=== PATIENT | male | born 1990 | race Caucasian/White ===

== ENCOUNTER 2020-08-14 09:32 | Emergency (ER) | payer OTHER, SELFPAY ==
--- NOTE | ~2020-08-14 | XR_ITS ---
EXAMINATION: XR ankle LT min 3V EXAM DATE: 08/14/2020 10:09 INDICATION: Diffuse left ankle pain s/p rolling . TECHNIQUE: Left ankle frontal, lateral and oblique projections obtained and reviewed. There is no pr ior study for comparison. FINDINGS: The left ankle mortise appears intact. There are no acute fractures or dislocations ident ified. There is no subcutaneous gas. There is soft tissue swelling mostly laterally but also surroun ding the ankle joint. There are no radiopaque foreign bodies. IMPRESSION: 1. Left ankle exam without acute osseous findings. 2. Soft tissue swelling. Reviewed, dictated and finalized at location A.
[2020-08-14 09:57] VITALS: BP 138/95; PULSE 80; RESP 16; TEMP 36.7; O2SAT 98
--- NOTE | 2020-08-14 09:59 | ED.LOWEXIN ---
HPI - Extremity Injury (Lower) General Chief Complaint: Extremity Injury, Lower Stated Complaint: left ankle pain Time Seen by Provider: 08/14/20 10:00 Source: patient Mode of arrival: ambulatory Limitations: no limitations History of Present Illness HPI Narrative: Jimmie Lopez is a 30 yo male with no PMH who comes to express care after falling off a skateboard yesterday and laterally rolling his :L ankle. Is on crutches and unable to weight bear without pain Related Data Allergies Allergy/AdvReac Type Severity Reaction Status Date / Time No Known Allergies Allergy Verified 08/14/20 09:50 Review of Systems Review of Systems: Narrative: CONSTITUTIONAL: Denies fever, chills, sweats. EYES: Denies visual changes, redness, discharge. ENT: Denies rhinorrhea, congestion, sore throat, otalgia. CARDIOVASCULAR: Denies chest pain, palpitations, edema. RESPIRATORY: Denies dyspnea, wheezing, cough GASTROINTESTINAL: Denies abdominal pain, nausea, vomiting, diarrhea. GENITOURINARY: Denies dysuria, hematuria, abnormal discharge SKIN: Denies rash or itching. NEUROLOGIC: Denies numbness, or focal weakness. PSYCHIATRIC: Denies anxiety or depression. Left ankle pain on the lateral side after fall yesterday PMFSH Past Medical History Medical History No acute medical problems Family History Family History Other No acute medical problems Social History Social History (Updated 08/14/20 @ 10:26 by María Elena Mc CNP) Smoking status: Never smoker Substance use: current Substance use type: marijuana Other substance usage details: vapes Living arrangements: with friend(s) Additional occupation/education comments: mechanics skills Gender identity (if verbalized by the patient): Male Comments At time of signature, I agree with nursing past medical, surgical, social and family history. There is no relevant family history pertinent to the presenting complaint. Exam Narrative: Exam Narrative: GENERAL: This is a well-nourished, well-developed patient, in moderate distress. HEAD: normocephalic, atraumatic. EYES: Sclera clear/white. Vision is grossly intact. EARS: External ears normal, Hearing grossly intact. NOSE: External nose normal without nasal discharge, nares without redness, no rhinorrhea. THROAT: Mucous membranes moist, NECK: Neck supple, CARDIOVASCULAR: Regular rate and rhythm without murmurs, gallops, or rubs. RESPIRATORY: Clear to auscultation. Breath sounds equal bilaterally. No wheezes, rales, or rhonchi. GASTROINTESTINAL: Abdomen soft, SKIN: warm, intact with no suspicious lesions or rash, good texture and turgor. NEURO: awake, alert, and oriented to person, place and time. There were no obvious focal neurologic abnormalities. Steady gait EXTREMITIES: Left ankle pain and swelling limited movement of the ankle due to the amount of swelling, 2+ pedal pulse, able to wiggle toes, left lateral swelling BACK: Nontender without deformity Course Course Emergency Course: Patient here for evaluation of falling off skateboard yesterday and rolling left ankle, unable to walk without pain X-ray of left ankle done-left ankle exam without osseous findings, soft tissue swelling Paddy wrap, directions about rice, given pain medication Vital Signs Vital signs: Vital Signs Temperature 98.0 F 08/14/20 09:57 Pulse Rate 80 08/14/20 09:57 Respiratory Rate 16 08/14/20 09:57 Blood Pressure 138/95 H 08/14/20 09:57 Pulse Oximetry 98 08/14/20 09:57 Temperature 98.0 F 08/14/20 09:57 Pulse Rate 80 08/14/20 09:57 Respiratory Rate 16 08/14/20 09:57 Blood Pressure 138/95 H 08/14/20 09:57 Pulse Oximetry 98 08/14/20 09:57 MDM - Extremity Injury (Lower) Differential Diagnosis Differential diagnosis: Likely ankle sprain and strain, fracture of toe, ankle fracture and other Critical
== END 2020-08-14 10:34 | disposition home or self-care (01) ==
PROVIDERS: Emergency Provider Nurse Practitioner
DX: S93.402A Sprain of unspecified ligament of left ankle, initial encounter (principal); S96.912A Strain of unspecified muscle and tendon at ankle and foot level, left foot, initial encounter; V00.131A Fall from skateboard, initial encounter; Y93.51 Activity, roller skating (inline) and skateboarding; Y92.9 Unspecified place or not applicable; F17.200 Nicotine dependence, unspecified, uncomplicated
CPT/HCPCS: 73610; 99213; G0463

== ENCOUNTER 2020-12-28 13:31 | Emergency (ER) | payer OTHER, SELFPAY ==
--- NOTE | ~2020-12-28 | XR_ITS ---
EXAMINATION: XR hand LT min 3V EXAM DATE: 12/28/2020 13:51 INDICATION: injury 5 weeks ago, dorsal side of lt hand . Persistent pain. Initial encounter. TECHNIQUE: Left hand frontal, lateral and oblique projections obtained and reviewed. There is no magaly or study for comparison. FINDINGS: Left metacarpal bones are unremarkable. No periosteal reaction or band of sclerosis to hughes ggest subacute fracture. There are no acute fractures or dislocations identified. There is no subc utaneous gas. There is soft tissue swelling over the wrist posteriorly. There are no radiopaque for eign bodies. IMPRESSION: 1. XR hand LT min 3V exam without acute osseous findings. 2. Soft tissue swelling. Reviewed, dictated and finalized at location B.
[2020-12-28 13:42] VITALS: BP 110/62; PULSE 78; RESP 16; TEMP 36.6; O2SAT 100
--- NOTE | 2020-12-28 14:11 | ED.UPPEXIN ---
HPI - Extremity Injury (Upper) General Chief Complaint: Extremity Problem,Nontraumatic Stated Complaint: Hand Pain Time Seen by Provider: 12/28/20 14:11 Source: patient and RN notes reviewed Mode of arrival: ambulatory Limitations: no limitations History of Present Illness HPI narrative: 30-year-old male presents to the [facility] with complaints of left dorsal aspect hand pain and swelling. States that he injured it 5 weeks ago while skateboarding. Did not seek treatment at that time. Was playing video games yesterday when it swelled up. Has decreased range of motion of fingers 2 3 and 4 which he reports has been going on for 5 weeks. Decreased range of motion of flexion and extension, has been going on for 5 weeks. No bruising or redness noted. No signs of infection. Capillary refill under 2 seconds. Sensation intact in all 5 fingers. Related Data Home Medications Medication Instructions Recorded Confirmed No Home Medications 12/28/20 12/28/20 Allergies Allergy/AdvReac Type Severity Reaction Status Date / Time No Known Allergies Allergy Verified 12/28/20 13:34 Review of Systems Review of Systems: All systems reviewed & are unremarkable except as noted in HPI and below Constitutional: Constitutional: Reports no additional constitutional complaints, Denies chills and Denies fever(s) Eyes: Eyes: Reports no additional eye complaints ENT: Reports system reviewed and no additional complaints, except as documented Cardiovascular: Cardiovascular: Reports no additional cardiovascular complaints Respiratory: Respiratory: Reports no additional respiratory complaints Gastrointestinal: Gastrointestinal: Reports no additional gastrointestinal complaints Musculoskeletal: Musculoskeletal: Reports as per HPI and Reports joint swelling (Dorsal aspect left hand) Integumentary/Breasts: Skin/Breast: Reports system reviewed and no additional complaints, except as docu, Denies erythema and Denies rash Neurologic: Reports system reviewed and no additional complaints, except as documented Psychiatric: Psychiatric: Reports no additional psychiatric complaints Allergic/Immunologic: Allergic/Immunologic: Reports no additional allergic/immunologic complaints [facility] Past Medical History Medical History No acute medical problems Family History Family History Other No acute medical problems Social History Social History Smoking status: Never smoker Substance use: current Substance use type: marijuana Other substance usage details: vapes Additional occupation/education comments: mechanics skills Gender identity (if verbalized by the patient): Male Comments At the time of my signature, I reviewed and agree with the nursing past medical, surgical, social, and family history. There is no relevant family history pertinent to the patient complaint. Exam Const: General: healthy appearing, no acute distress and alert Nutritional Appearance: well nourished Orientation/consciousness: patient oriented x3 Limitations: no limitations HENMT: Head: normal to inspection Eyes: Pupils: Equal, round and reactive pupils present Neck: Neck: normal visual inspection, no lymphadenopathy and no meningeal signs Chest: Chest palpation & inspection: normal inspection of the chest Resp: Effort & Inspection: normal respiratory effort Auscultation: clear to auscultation bilaterally Cardio: Rate: regular rate Rhythm: regular rhythm Back/Spine/Pelvis: Back: no CVA tenderness Skin: General skin exam: normal color Rashes: no rashes Wounds: no wounds Neuro: General: patient oriented x3, moves all extremities, no meningeal signs and no focal motor deficits Speech: normal speech Gait exam (Neuro): Normal gait present Extrem: General: normal to inspection Left upper extremit
== END 2020-12-28 14:30 | disposition home or self-care (01) ==
PROVIDERS: Emergency Provider Nurse Practitioner
DX: M79.641 Pain in right hand (principal); M79.89 Other specified soft tissue disorders
CPT/HCPCS: 73130; 99213; G0463